=== PATIENT | female | born 1990 | race African-American/Black ===

== ENCOUNTER 2022-01-26 13:10 | Inpatient (IN) ==
[2022-01-26 13:48] LABS: Basophils % 0.1 % (0.0-0.8); Eosinophils % 0.3 % (0.00-10.9); Hematocrit 26.9 VOL% (35.7-47.0); Hemoglobin 8.6 GM/DL (12.0-16.0); Immature Granulocytes % 1.5 %; Immature Granulocytes Absolute 0.17 #; Lymphocytes % 25.9 % (21.3-54.2); Mean Corpuscular Volume 87.3 FL (87-102); Mean Platelet Volume 10.3 FL (9.6-12.0); Monocytes % 7.5 % (1.7-12.7); Neutrophils % 64.7 % (38.7-73.9); Platelet Count 318 T/CUMM (130-400); Red Blood Count 3.08 MC/CUMM (3.8-5.5); Red Cell Distribution Width 13.5 % (9.3-17.3); White Blood Count 11.5 T/CUMM (4-12)
[2022-01-26] MEDS: NIFEdipine 10 MG CAPSULE PO PRN ×2 (13:52→14:12)
[2022-01-26 14:00] LABS: INR 0.9; PT Patient Result 10.5 SECS (10.5-12.0); Partial Thromboplastin Time 28.5 SECS (23.8-32.1)
[2022-01-26 14:01] LABS: Albumin 2.3 G/DL (3.4-5.0); Bilirubin,Direct 0.22 MG/DL (0.0-0.20); Bilirubin,Total 0.5 MG/DL (0.20-1.00); Calcium 8.7 MG/DL (8.5-10.1); Potassium 3.2 MMOL/L (3.5-5.1); Total Protein 6.8 G/DL (6.4-8.2); Uric Acid 3.8 MG/DL (2.6-6.0)
[2022-01-26 14:49] LABS: RBC,Urine <1 /HPF (0-4); Squamous Epithelial Cell,Urine Occasional /HPF (0-10)
[2022-01-26 14:51] LABS: Bilirubin,Urine Negative (Negative); Blood, Urine Negative (Negative); Glucose,Urine (UA) Negative (Negative); Ketones,Urine Negative (Negative); Nitrite,Urine Negative (Negative); Protein,Urine Negative (Negative); Urine Appearance Clear (Clear); Urine Color Yellow (Yellow)
[2022-01-26] MEDS ORDERED: MEPERIDINE 50 MG/1 ML VIAL IM ONE (15:00)
[2022-01-26] MEDS ORDERED: PROMETHAZINE 25 MG/1 ML VIAL IM ONE (15:00)
[2022-01-26] MEDS ORDERED: LACTATED RINGERS 1,000 ML IV ONE (15:00)
[2022-01-26 15:16] LABS: Protein/Creatinine Ratio,Urine 0.4 RATIO
[2022-01-26] MEDS ORDERED: CARBOPROST TROMETHAMINE 250 MCG/ML AMP IM PRN (15:21)
[2022-01-26] MEDS ORDERED: TRANEXAMIC ACID 1,000 MG in SODIUM CHLORIDE 0.9% 100 ML IV PRN (15:21)
[2022-01-26] MEDS ORDERED: miSOPROStoL 200 MCG TABLET RECTAL PRN (15:21)
[2022-01-26] MEDS ORDERED: METHYLERGONOVINE 0.2 MG/1 ML AMP IM PRN (15:26)
[2022-01-26] MEDS ORDERED: OXYTOCIN/LR 20 UNIT/1,000 ML BAG IV ONE ×2 (15:30→18:00)
[2022-01-26] MEDS ORDERED: ceFAZolin 2,000 MG/50 ML DUPLEX IV ONE (15:30)
[2022-01-26] MEDS ORDERED: BUPIVACAINE SPINAL 0.75% 2 ML AMP SPINAL ONE (16:00)
[2022-01-26] MEDS ORDERED: METOCLOPRAMIDE 10 MG/2 ML VIAL ONE (16:00)
[2022-01-26] MEDS ORDERED: OXYTOCIN/LR 30 UNIT/1,000 ML BAG IV ONE (16:00)
[2022-01-26] MEDS ORDERED: CITRIC ACID/SODIUM CITRATE 30 ML UDCUP PO ONE (16:00)
[2022-01-26] MEDS ORDERED: FAMOTIDINE 20 MG/2 ML VIAL IV ONE (16:00)
[2022-01-26] MEDS ORDERED: OXYTOCIN 10 UNIT/ML VIAL IM ONE (16:00)
[2022-01-26] MEDS ORDERED: ONDANSETRON 4 MG/2 ML VIAL ONE (16:00)
[2022-01-26] MEDS ORDERED: MIDAZOLAM 2 MG/2 ML VIAL ONE (16:58)
[2022-01-26 17:17] LABS: Cord Arterial Blood HCO3 24.2 MMOL/L
[2022-01-26 17:20] LABS: Cord Venous Blood HCO3 26.3 MMOL/L; Cord Venous Blood PCO2 46.7 MMHG
[2022-01-26 17:25] LABS: Bilirubin,Urine Negative (Negative); Blood, Urine Negative (Negative); Glucose,Urine (UA) Negative (Negative); Ketones,Urine Negative (Negative); Nitrite,Urine Negative (Negative); Protein,Urine Negative (Negative); RBC,Urine 1 /HPF (0-4); Urine Appearance Clear (Clear); Urine Color Yellow (Yellow); Urine Specific Gravity 1.015 (1.001-1.035); Urine Urobilinogen 0.2 eU/dL (<2.0); Urine pH 7.5 (4.5-8.0)
[2022-01-26] MEDS ORDERED: KETOROLAC 30 MG/1 ML VIAL ONE (17:27)
[2022-01-26] MEDS ORDERED: IBUPROFEN 800 MG TABLET PO PRN (17:39)
[2022-01-26] MEDS ORDERED: ACETAMINOPHEN 325 MG TABLET PO PRN (17:39)
[2022-01-26] MEDS ORDERED: RHO(D) IMMUNE GLOBULIN 300 MCG SYRINGE IM ONE (17:39)
[2022-01-26] MEDS ORDERED: ONDANSETRON 4 MG/2 ML VIAL IV PRN (17:39)
[2022-01-26] MEDS ORDERED: SIMETHICONE CHEW 80 MG TABLET PO PRN (17:39)
[2022-01-26] MEDS ORDERED: LACTATED RINGERS 1,000 ML IV SCH (18:00)
[2022-01-26 18:39] LABS: Barbiturates Screen,Urine Negative (Negative); Benzodiazepines Screen,Urine Negative (Negative); Cannabinoid Screen,Urine Positive (Negative); Opiate Screen,Urine Negative (Negative); Phencyclidine Screen,Urine Negative (Negative)
[2022-01-26] MEDS: ACETAMINOPHEN 500 MG TABLET PO SCH (20:33)
[2022-01-26] MEDS: DOCUSATE SODIUM 100 MG CAPSULE PO SCH (22:16)
[2022-01-26] MEDS: POTASSIUM CHLORIDE RIDER 10 MEQ/100 ML PREMIX IV SCH ×2 (22:17→23:34)
[2022-01-26] MEDS: KETOROLAC 30 MG/1 ML VIAL IV SCH (23:01)
[2022-01-27 01:23] LABS: Basophils % 0.1 % (0.0-0.8); Eosinophils % 0.2 % (0.00-10.9); Hematocrit 23.8 VOL% (35.7-47.0); Hemoglobin 7.6 GM/DL (12.0-16.0); Immature Granulocytes % 0.5 %; Immature Granulocytes Absolute 0.08 #; Lymphocytes # 3.4 10*3/uL (1.4-4.0); Lymphocytes % 22.5 % (21.3-54.2); Mean Corpuscular HGB Conc 31.9 GM/DL (32-36); Mean Corpuscular Volume 87.2 FL (87-102); Mean Platelet Volume 10.2 FL (9.6-12.0); Monocytes % 8.1 % (1.7-12.7); Neutrophils % 68.6 % (38.7-73.9); Platelet Count 253 T/CUMM (130-400); Red Blood Count 2.73 MC/CUMM (3.8-5.5); Red Cell Distribution Width 13.5 % (9.3-17.3); White Blood Count 15.2 T/CUMM (4-12)
[2022-01-27] MEDS: POTASSIUM CHLORIDE RIDER 10 MEQ/100 ML PREMIX IV SCH ×3 (01:30→03:35)
[2022-01-27] MEDS: ACETAMINOPHEN 500 MG TABLET PO SCH (02:19)
[2022-01-27] MEDS: KETOROLAC 30 MG/1 ML VIAL IV SCH ×2 (05:07→11:13)
[2022-01-27 09:09] LABS: Basophils % 0.2 % (0.0-0.8); Eosinophils % 0.2 % (0.00-10.9); Hematocrit 22.9 VOL% (35.7-47.0); Hemoglobin 7.2 GM/DL (12.0-16.0); Immature Granulocytes % 0.5 %; Immature Granulocytes Absolute 0.07 #; Lymphocytes # 2.6 10*3/uL (1.4-4.0); Lymphocytes % 19.5 % (21.3-54.2); Mean Corpuscular HGB Conc 31.4 GM/DL (32-36); Mean Corpuscular Volume 87.7 FL (87-102); Mean Platelet Volume 10.3 FL (9.6-12.0); Monocytes % 6.6 % (1.7-12.7); Platelet Count 243 T/CUMM (130-400); Red Blood Count 2.61 MC/CUMM (3.8-5.5); Red Cell Distribution Width 13.4 % (9.3-17.3); White Blood Count 13.2 T/CUMM (4-12)
[2022-01-27] MEDS: DOCUSATE SODIUM 100 MG CAPSULE PO SCH ×2 (09:45→21:01)
[2022-01-27] MEDS: MULTIVITAMIN (PRENATAL) TABLET PO SCH (09:45)
[2022-01-27] MEDS: MAGNESIUM HYDROXIDE SUSP 30 ML UDCUP PO PRN ×2 (09:49→23:08)
[2022-01-27] MEDS: POTASSIUM CHLORIDE 20 MEQ TABLET PO PRN ×4 (11:13→17:20)
[2022-01-27] MEDS: FERROUS SULFATE 325 MG TABLET PO SCH ×2 (14:13→21:01)
[2022-01-28] MEDS ORDERED: IBUPROFEN 800 MG TABLET PO PRN (03:03)
[2022-01-28] MEDS: DOCUSATE SODIUM 100 MG CAPSULE PO SCH (09:10)
[2022-01-28] MEDS: FERROUS SULFATE 325 MG TABLET PO SCH (09:11)
[2022-01-28] MEDS: MULTIVITAMIN (PRENATAL) TABLET PO SCH (09:11)
[2022-01-28 11:12] VITALS: BP 143/86
== END 2022-01-28 12:50 | disposition home or self-care (01) | DRG 540 ==
LOC: N.LDOUT 13:10 → N.LD 13:16 → N.OB 20:53
PROVIDERS: ADMIT Obstetrics & Gynecology; ATTEND Obstetrics & Gynecology
PROC: LDCSECT (ICD-10-PCS; 2022-01-26 15:00)